=== PATIENT | male | born 1995 | race Caucasian/White ===

== ENCOUNTER 2025-07-10 21:02 | Emergency (ER) | payer OTHER, SELFPAY ==
[2025-07-10 21:06] VITALS: BP 136/77
[2025-07-10 21:23] LABS: Hematocrit 39.9 % (39.0-52.0); Hemoglobin 14.0 g/dL (13.0-18.0); Mean Corp Hgb Conc. 35.1 g/dL (33.0-37.0); Mean Corpuscular Volume 83.1 fL (80.0-94.0); Nucleated Red Blood Cells % 0 % (-); Platelet Count 258 10^3/uL (130-400); Red Cell Dist. Width 12.4 % (11.5-14.5)
[2025-07-10 21:43] LABS: ALT (SGPT) 23 U/L (0-50); AST (SGOT) 21 U/L (17-59); Albumin 4.7 g/dl (3.5-5.0); Alkaline Phosphatase 56 U/L (38-126); Blood Urea Nitrogen 15 mg/dl (9-20); Calcium 9.8 mg/dl (8.4-10.2); Carbon Dioxide 24 mmol/L (22-30); Chloride 104 mmol/L (98-107); Glucose 107 mg/dl (70-99); Potassium 4.1 mmol/L (3.5-5.1); Sodium 137 mmol/L (135-145); Total Protein 7.4 g/dl (6.3-8.2); eGFR > 60.00
[2025-07-10 23:56] VITALS: BMI 16.2
[2025-07-11] VITALS: BP 130/69
--- NOTE | 2025-07-11 00:43 | EDRN ---
Patient was on the call sims, stating he just wants to leave as he is tired of waiting, apologized for the wait and explained unfortunatly it is busy and the providers are working as quickly as they can, asked patient if we could attempt to get
someone to see him or see how long until being seen, spoke with Dr. Washington and Emil Sauceda about patient wanting to leave, informed patient that the providers were made aware and EMIL Sauceda is in at bedside now.
[2025-07-11 01:00] VITALS: BP 139/74
--- NOTE | 2025-07-11 01:20 | ED.GENMED ---
History of Present Illness
<Komal Hagen PA-C - Last Filed: 07/11/25 07:38>
General
Chief Complaint: Skin Problem
Source: patient
Exam Limitations: none
Time Seen by Provider: 07/11/25 00:40
Nursing documentation reviewed up to this point in time: agreed with
History of Present Illness
History of Present Illness:
40-year-old male with no past medical history presents to ER today with concerns of knee pain and swelling that started at the onset yesterday. Initially, he noticed joint pain which progressed to swelling around the knee by late morning. The
previous day, the patient sought care at an urgent care facility and then subsequently his primary care provider. His primary care provider performed a knee aspiration which yielded blood and did not send it for testing. Patient reports that he
was told by his primary care provider to report to the ER if she if he develops a fever. Patient reports that he has no symptoms of a fever but reports that he checked his temperature and noted a low-grade fever of 100.9 at home. He is able to
ambulate without any problems and notes good range of motion. He reports that the redness has not been progressively worse or rapidly swelling. He has no nausea or vomiting. No fever in the emergency department. He denies any recent trauma to
the skin or any recent falls or external trauma.
Past History
<Komal Hagen PA-C - Last Filed: 07/11/25 07:38>
Past History
ED Past Medical History: None
Social History
Tobacco: Non-smoker
Living: with family
Employment: Student
Review of Systems
<Komal Hagen PA-C - Last Filed: 07/11/25 07:38>
Review of Systems
All Other Systems: ROS reviewed and negative except as documented in HPI and ROS
Phy Exam
<Komal Hagen PA-C - Last Filed: 07/11/25 07:38>
Physical Exam
Physical Exam:
General: Patient is well appearing and in no acute distress; non-toxic
Skin: Warm and dry, mild erythema noted to right knee
Head: Normocephalic, atraumatic
Eyes: Sclera non-icteric. EOMs intact.
Cardiac: Regular rate and rhythm, no murmurs
Pulm: Normal respiratory effort
Musculoskeletal: Normal gait. Mild right knee swelling noted, 5/5 strength in bilateral lower extremities, full range of motion of right knee with normal flexion extension.
Neuro: CN II-XII intact, no focal neurologic deficits.
Psychiatric: Appropriate mood and affect.
Course
<Komal Hagen PA-C - Last Filed: 07/11/25 07:38>
Orders/Labs/Results
Orders:
Orders
07/10/25 21:11
Complete Blood Count/With Diff Urgent
Comprehensive Metabolic Panel Urgent
07/11/25 01:02
CR Knee- Right 4 Or More View* Urgent
Comment:
Reason For Exam: right knee pain
07/11/25 03:17
Wound Culture [Wound/Abscess/Other Culture] Urgent
ADAM Source: Abscess
Specimen Description:
Date Specimen was Collected: 07/11/25
Time Specimen was Collected: 03:10
Abnormal Lab Results
07/10/25
21:11
WBC 13.3 H 10^3/uL
(4.8-10.8)
Abs Immat Gran (auto) 0.1 H 10^3/uL
(0-0.05)
Absolute Neuts (auto) 8.5 H 10^3/uL
(1.4-6.5)
Absolute Monos (auto) 1.5 H 10^3/uL
(0.1-0.6)
Monocytes % 11.2 H %
(1.7-9.3)
Glucose 107 H mg/dl
(70-99)
07/10/25 21:11
07/10/25 21:11
Vital Signs
Initial and Last Documented VS:
Initial Vital Signs
Temp Pulse Resp BP Pulse Ox
98.5 F 71 18 136/77 95
07/10/25 21:06 07/10/25 21:06 07/10/25 21:06 07/10/25 21:06 07/10/25 21:06
Last Documented Vital Signs
Temp Pulse Resp BP Pulse Ox
98.5 F 71 18 139/74 100
07/10/25 21:06 07/10/25 21:06 07/10/25 21:06 07/11/25 01:00 07/11/25 01:20
<Neymar Martínez MD - Last Filed: 07/11/25 02:35>
Orders/Labs/Results
Orders:
Orders
07/10/25 21:11
Complete Blood Count/With Diff Urgent
Comprehensive Metabolic Panel Urgent
07/11/25 01:02
CR Knee- Right 4 Or More View* Urgent
Comment:
Reason For Exam: right knee pain
07/11/25 03:17
Wound Culture [Wound/Abscess/Other Culture] Urgent
ADAM Source: Abscess
Specimen Description:
Date Specimen was Collected: 07/11/25
Time Specimen was Collected: 03:10
Abnormal Lab Results
07/10/25
21:11
WBC 13.3 H 10^3/uL
(4.8-10.8)
Abs Immat Gran (auto) 0.1 H 10^3/uL
(0-0.05)
Absolute Neuts (auto) 8.5 H 10^3/uL
(1.4-6.5)
Absolute Monos (auto) 1.5 H 10^3/uL
(0.1-0.6)
Monocytes % 11.2 H %
(1.7-9.3)
Glucose 107 H mg/dl
(70-99)
07/10/25 21:11
07/10/25 21:11
Vital Signs
Initial and Last Documented VS:
Initial Vital Signs
Temp Pulse Resp BP Pulse Ox
98.5 F 71 18 136/77 95
07/10/25 21:06 07/10/25 21:06 07/10/25 21:06 07/10/25 21:06 07/10/25 21:06
Last Documented Vital Signs
Temp Pulse Resp BP Pulse Ox
98.5 F 71 18 139/74 100
07/10/25 21:06 07/10/25 21:06 07/10/25 21:06 07/11/25 01:00 07/11/25 01:20
Procedures
<Komal Hagen PA-C - Last Filed: 07/11/25 07:38>
Other
Indication for procedure:: Bursitis
Procedure completed by: Komal Hagen PA-C
Consent form signed: No
If no, reason: Emergency procedure (Verbal consent obtained)
Additional Procedure:
The knee was cleansed with Betadine. Patellar bursa was aspirated yielding serosanguineous to bloody fluid, no purulent fluid. Sent for culture.
<Komal Hagen PA-C - Last Filed: 07/11/25 07:38>
MDM/Problems Addressed
Differential Diagnosis Includes:
Differentials include cellulitis, osteoarthritis, septic arthritis, prepatellar bursitis
MDM/Problems Addressed:
30-year-old male presents to the emergency department today with concerns of knee pain and swelling. He denies any inciting injury. He denies any cuts to the area or open wound. He did have a low-grade fever at home. He was told to report to the
ER by his primary care provider. Previously had knee joint aspiration which yielded blood. Did not feel that it would be benefit to repeat arthrocentesis today considering that on exam, patient has full range of motion of his knee and is able to
ambulate without difficulty. I did aspirate fluid from the bursa which was not purulent did send for culture. Advised to continue antibiotics at was prescribed by his primary care provider. Discussed Tylenol Motrin for pain. Patient stable for
discharge.
Chronic conditions affecting care:
n/a
<Komal Hagen PA-C - Last Filed: 07/11/25 07:38>
*Pulse Oximetry
SaO2: 100
Oxygen Mode of Delivery: Room air
Patient hypoxic: no
*Critical Care Note
Total Time (30-74mins, 75-104mins- exclusive of procedures): Not Applicable
ED Attending Note
<Komal Hagen PA-C - Last Filed: 07/11/25 07:38>
-
Portions of this chart may have been created with voice recognition software.� Occasional wrong word or��sound alike� substitutions may have occurred due to the inherent limitations of voice recognition software.
<Neymar Martínez MD - Last Filed: 07/11/25 02:35>
ED Attending Note
Patient seen and examined by attending physician: Yes
ED Attending Note:
I have seen and evaluated the patient with a [id number] encounter. I have spoken to the advance practicer provider and involved in the medical history, the physical exam, medical decision making.
Evaluation and management service: agree unless noted differently below.
Results interpretation: agree unless noted differently below.
Focused HPI: 30-year-old male with no reported chronic medical issues presents for evaluation of redness, swelling, pain in the right knee. Patient reports onset of symptoms over the past 24 hours. He reports redness of the right knee and
low-grade fever 100.9 �F at home. He denies any other acute issues. Denies any trauma.
Physical exam: Awake and alert not in distress. Vital signs normal. No fever here. He has some erythema in the prepatellar region of the right knee and some tenderness of the prepatellar bursa; he has no appreciable joint effusion on exam. He
has full range of motion of the knee with no pain.
Medical Decision Makin-year-old male presents with right knee redness, pain and swelling and low-grade fever at home tonight. On exam he appears to have redness and swelling over the prepatellar bursa and overall clinical picture seems most
consistent with prepatellar bursitis likely a septic bursitis. He has no appreciable joint effusion on exam and has full range of motion in the without pain and so very low clinical suspicion that this is a septic arthritis. X-ray reviewed and
minimal effusion noted; he already had an attempt at arthrocentesis at his primary doctor's office earlier which was unsuccessful in my judgment risk of introducing infection greater than benefit of attempting a second arthrocentesis in the
emergency room today in the context of very low clinical suspicion for a septic joint. We will however drain bursa sac. Continue antibiotics.
Discharge Plan
Departure
Patient Disposition: Home (Routine Discharge)
Date of Disposition: 07/11/25
Time of Disposition: 02:58
Patient with high blood pressure during this ER visit?: Yes
Condition: Good
Discharge Problem:
Patellar bursitis
Instructions: Bursitis - ED (DC), BLOOD PRESSURE
Referrals:
Kaushik Denny MD [Active, Orthopedics] - Call in 1-3 days for appt
Cordelia Rod CRNP [Family Provider]
Activity Restrictions/Additional Instructions:
Please follow up with orthopedics and your PCP.
Please continue to monitor your symptoms.
PLEASE RETURN TO THE ER SHOULD YOU DEVELOP INABILITY TO AMBULATE, INCREASE IN SWELLING, INABIITY TO RANGE YOUR KNEE, RAPID SPREAD OF THE REDNESS, OR ANY OTHER SIGNS OR SYMPtOMS WORRISOME TO YOU.
Interventions
Interventions:
*Risk Screen - Suicide Last Done: 07/10/25 21:06
*General Assessment Last Done: 07/10/25 21:07
*Neglect/Abuse Screening Last Done: 07/10/25 21:06
*ED- Fall Risk Assessment Last Done: 07/10/25 23:25
*ED COVID-19 Vaccine History Last Done: 07/10/25 21:07
*ED Influenza Vaccine History Last Done: 07/10/25 21:07
*Nursing Disposition Last Done: 07/11/25 03:23
ED-Skin Assessment Last Done: 07/10/25 23:24
Discharge Date and Time
Discharge Date/Time: 07/11/25 03:24
Print Language: [place]
== END 2025-07-11 03:24 | disposition home or self-care (01) ==
LOC: EMR 21:02
PROVIDERS: EMERGENCY PHYSICIAN Emergency Medicine; FAMILY PHYSICIAN Nurse Practitioner Family
DX: M70.41 Prepatellar bursitis, right knee (principal); R03.0 Elevated blood-pressure reading, without diagnosis of hypertension
CPT/HCPCS: 99284; 20610; 73564; 80053; 85025; 87070; 87205